=== PATIENT | male | born 1960 | race Caucasian/White ===

== ENCOUNTER 2018-02-13 08:45 | Emergency (ER) | payer MEDICARE, OTHER ==
[2018-02-13] MEDS ORDERED: LIDOCAINE 2% INJ (20 MG/ML) 20 ML MDV INJ ONE (09:12)
--- NOTE | 2018-02-13 09:17 | RADIOLOGY REPORT (SQ) ---
EXAM DESCRIPTION: HAND RIGHT 3 VIEWS COMPLETED DATE/TIME: 02/13/2018 9:10 am REASON FOR STUDY: fall COMPARISON: None. EXAM PARAMETERS: NUMBER OF VIEWS: Three views. TECHNIQUE: AP, lateral and oblique radiographic images acquired of the right hand. LIMITATIONS: None. FINDINGS: MINERALIZATION: Normal. BONES: No acute fracture or dislocation. No worrisome bone lesions. JOINTS: No effusions. SOFT TISSUES: No soft tissue swelling. No foreign body. OTHER: No other significant finding. IMPRESSION: NEGATIVE STUDY OF THE RIGHT HAND. NO RADIOGRAPHIC EVIDENCE OF ACUTE INJURY. TECHNICAL DOCUMENTATION: JOB ID: [id number]- All Rights Reserved Reading location - IP/workstation name: [employer] [email or web address]
[2018-02-13] MEDS ORDERED: MORPHINE SULFATE 10 MG/ML INJ IV ONE (11:20)
[2018-02-13] MEDS ORDERED: ONDANSETRON HCL INJ/PF 4 MG/2 ML SDV IV ONE (11:21)
[2018-02-13] MEDS ORDERED: DIPH/PERTUSS(ACELL)/TETANUS VAC/PF 0.5 ML SYR (>=10YO) IM ONE (11:22)
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
[2018-02-13 12:02] VITALS: BP 147/90
== END 2018-02-13 12:04 | disposition home or self-care (01) ==
LOC: ER 08:45
DX: S66.921A Laceration of unspecified muscle, fascia and tendon at wrist and hand level, right hand, initial encounter (principal); S61.011A Laceration without foreign body of right thumb without damage to nail, initial encounter; S61.411A Laceration without foreign body of right hand, initial encounter; W19.XXXA Unspecified fall, initial encounter; W22.09XA Striking against other stationary object, initial encounter; Y93.89 Activity, other specified; Y92.89 Other specified places as the place of occurrence of the external cause; I10 Essential (primary) hypertension; Z72.0 Tobacco use
CPT/HCPCS: 99283; 90471; 96374; 96375; 73130; 90715; 12032; J3490; J2270; J2405

== ENCOUNTER 2018-02-27 11:27 | Emergency (ER) | payer MEDICARE ==
[2018-02-27 11:33] VITALS: BP 156/87
--- NOTE | 2018-02-27 12:02 | ER Document Report ---
HPI - HPI Pain Level: Denies Notes: Patient is a 57-year-old male who presents to the ED for suture removal after sutures are placed to his right anterior hand 2 weeks ago. Patient states that he has not had any difficulty with the hand or any worsening pain. He is able to move his fingers with any difficulties. He has not noticed any redness or purulent discharge. Denies drug allergies. No other concerns or complaints. Denies any headache, fever, URI, sore throat, chest pain, palpitations, syncope , cough, shortness of breath, wheeze, dyspnea, abdominal pain, nausea/vomiting/ diarrhea, urinary retention, dysuria, hematuria, numbness/tingling, muscle paralysis/weakness, or rash. - ROS Systems Reviewed and Negative: Yes All other systems reviewed and negative Past Medical History - Social History Smoking Status: Unknown if Ever Smoked Family History: None, Reviewed & Not Pertinent - Past Medical History Cardiac Medical History: Reports: Hx Hypercholesterolemia, Hx Hypertension Renal/ Medical History: Denies: Hx Peritoneal Dialysis Past Surgical History: Reports: Hx Orthopedic Surgery - right shoulder Vertical Provider Document - CONSTITUTIONAL Agree With Documented VS: Yes Notes: PHYSICAL EXAMINATION: GENERAL: Well-appearing, well-nourished and in no acute distress. HEAD: Atraumatic, normocephalic. LUNGS: Breath sounds clear to auscultation bilaterally and equal. No wheezes rales or rhonchi. HEART: Regular rate and rhythm without murmurs, rubs, gallops. Musculoskeletal: Rt hand: FROM to passive/active. Strength 5+/5. N/V intact distal. Non-tender. Extremities: No cyanosis, clubbing, or edema b/l. Peripheral pulses 2+. Capillary refill less than 3 seconds. NEUROLOGICAL: Cranial nerves grossly intact. Normal speech, normal gait. Normal sensory, motor exams PSYCH: Normal mood, normal affect. SKIN: 12 sutures visualized w/o evidence of erythema, purulence, streaks, dehiscence, or induration. - INFECTION CONTROL TRAVEL OUTSIDE OF THE [place] IN LAST 30 DAYS: No Course - Re-evaluation Re-evalutation: 02/27/18 12:00 There is no evidence of infection, wound dehiscence. PE unremarkable. Vitals are acceptable. Sutures removed successfully without any complications by PCT. Wound was reevaluated and unremarkable for acute pathology. Wound instructions reviewed. Recheck with your PCM in 3-5 days. Return to the ED with any worsening/concerning symptoms otherwise as reviewed in discharge. - Vital Signs Vital signs: Temp Pulse Resp BP Pulse Ox 98.4 F 76 18 156/87 H 100 02/27/18 11:32 02/27/18 11:32 02/27/18 11:32 02/27/18 11:32 02/27/18 11:32 Discharge - Discharge Clinical Impression: Visit for suture removal Condition: Stable Disposition: HOME, SELF-CARE Instructions: Suture Removal Additional Instructions: Keep the skin clean Monitor for any signs of infection or wound dehiscence Recheck with your PCM in 3-5 days Return to the ED with any worsening symptoms and/or development of fever, headache, chest pain, palpitations, syncope, shortness of breath, trouble breathing, abdominal pain, n/v/d, abscess, purulent discharge, red streaks, worsening swelling, or other worsening symptoms that are concerning to you. Forms: Elevated Blood Pressure Referrals: NOAH WYATT PA [Primary Care Provider] - Follow up in 3-5 days
== END 2018-02-27 12:16 | disposition home or self-care (01) ==
LOC: ER 11:27
DX: S61.411D Laceration without foreign body of right hand, subsequent encounter (principal); X58.XXXD Exposure to other specified factors, subsequent encounter; I10 Essential (primary) hypertension